=== PATIENT | female | born 1975 | race Caucasian/White ===

== ENCOUNTER → 2017-05-19 | Outpatient (CLI) | payer OTHER ==
[2017-05-22 11:51] LABS: VWF RISTOCETIN CO FACTOR 106 (42-200)
[2017-05-22 15:51] LABS: APTT VON WILL EVAL 27 sec (22-34)
[2017-05-22 17:50] LABS: COAG FACTOR VIII 118 (50-180)
[2017-05-22 19:53] LABS: VWF AG 125 % (50-217)
== END ==
LOC: CLAB 13:49
PROVIDERS: ATTEND Surgery
DX: E21.3 Hyperparathyroidism, unspecified (principal)
CPT/HCPCS: 36415; 85240; 85245; 85246; 85247; 85730

== ENCOUNTER → 2017-06-18 | Day surgery (SDC) | payer OTHER ==
[~2017-06-18] VITALS: Ht 157.5 cm; Wt 80.5 kg
[~2017-06-18] MED LIST: BACITRACIN TOP OINT 15 GM TUBE ONE; BUPIVACAINE/EPINEPHRINE 0.25% 50 ML VIAL ONE; CHLORHEXIDINE GLUCONATE 2 % 1 PACK (2 CLOTHS) TOPICAL PRN; DEXAMETHASONE SOD PHOS 4 MG/ML VIAL IV ONE; DO NOT ADM ANY ANTICOAGULANT DRUGS PRN; ESMOLOL HCL 100 MG/10 ML VIAL IV ONE; GLYCOPYRROLATE 1 MG/5 ML SYRINGE IV PUSH ONE; INSULIN HUMAN REGULAR 1,000 UNITS/10 ML VIAL SQ PRN; LACTATED RINGER'S 1000 ML INJ 1,000 ML IV ONE; LACTATED RINGER'S 1000 ML IV PRN; LEVO50TA4 PO; LEVOTHYROXINE SODIUM 50 MCG TAB PO SCH; LIDOCAINE HCL 1% PF 5 ML SYRINGE OTHER ONE; LIOT5TAB3; LIOTHYRONINE SODIUM 5 MCG TAB PO SCH; METOPROLOL TARTRATE 25 MG TAB PO PRN; MIDAZOLAM HCL 2 MG/2 ML VIAL ONE; NORC5TAB PO; OMEP40CA2; ONDANSETRON HCL 4 MG/2 ML VIAL IV ONE; PANTOPRAZOLE SOD 40 MG DELAYED RELEASE TAB PO SCH; PHENYLEPH/NS 1000 MCG/10 ML SYR IV ONE; POVIDONE IODINE 5% (ANTISEPSIS KIT) 4 APPLICATIONS EACH NARE PRN; PROPOFOL 200 MG/20 ML AMP IV ONE; ROCURONIUM INJ 50 MG/5 ML SYRINGE IV PUSH ONE; SODIUM CHLORID 0.9% 500 ML IV PRN; SUCCINYLCHOLINE CHLORIDE 100 MG/5 ML SYRINGE IV PUSH ONE
[2017-06-18 12:26] LABS: AUTOMATED NEUTROPHIL # 4.2 TH/MM3 (1.8-7.7); BASOPHIL # 0.1 TH/MM3 (0-0.2); BASOPHIL % 0.8 % (0.0-2.0); EOSINOPHIL # 0.1 TH/MM3 (0-0.4); HEMATOCRIT 37.2 % (35.0-46.0); HEMOGLOBIN 12.3 GM/DL (11.6-15.3); LYMPH % 34.2 % (9.0-44.0); LYMPHOCYTE # 2.4 TH/MM3 (1.0-4.8); MEAN CELL VOLUME 87.7 FL (80.0-100.0); MEAN CORPUSCULAR HGB CONC 33.1 % (32.0-36.0); MEAN PLATELET VOLUME 7.8 FL (7.0-11.0); MONO % 5.6 % (0.0-8.0); MONOCYTE # 0.4 TH/MM3 (0-0.9); NEUT % 58.4 % (16.0-70.0); PLATELET COUNT 278 TH/MM3 (150-450); RED BLOOD COUNT 4.24 MIL/MM3 (4.00-5.30); RED CELL DISTRIBUTION WIDTH 13.8 % (11.6-17.2); WHITE BLOOD COUNT 7.1 TH/MM3 (4.0-11.0)
--- NOTE | 2017-06-18 15:39 | HHI.PR ---
cc: José Luis Mitchell MD Immediate Post Op Note Procedure Date: Jun 18, 2017 Pre Op Diagnosis: (1) Hypercalcemia (2) Parathyroid adenoma (3) Primary hyperparathyroidism Post Op Diagnosis: (1) S/P parathyroidectomy (2) Hypercalcemia (3) Primary hyperparathyroidism (4) Parathyroid adenoma Surgeon: José Luis Mitchell Varnish Melter(s): Please see OR records Procedure: Localization of right parathyroid adenoma inferior Parathyroidectomy right inferior gland Complications: None Specimen(s) removed: Right inferior parathyroid gland Anesthesia: General Drains: None IVF Patient to: PACU Patient Condition: Good Implant/Devices: SEE IMPLANT LOG (if applicable) Date/Time of Procedure: SEE SURGICAL CARE RECORD José Luis Mitchell MD Jun 18, 2017 15:39
--- NOTE | 2017-06-18 16:51 | MP ---
cc: José Luis Mitchell MD DATE OF OPERATION: 06/18/2017 PREOPERATIVE DIAGNOSIS: Primary hyperparathyroidism. Primary hyperparathyroidism, right inferior gland. ANESTHESIA: General. SURGEON: José Luis Mitchell MD PROCEDURE: 1. Right inferior parathyroidectomy with localization by navigator probe. 2. Neuromonitoring intraoperatively. INDICATIONS: This pleasant lady who has a primary hyperparathyroidism, hypercalcemia. Plans were made for the above. PROCEDURE: The patient was taken to the operating room and placed in supine position. After endotracheal anesthesia, her right neck is prepped with Betadine. We had localized the area after an injection of the technetium-99. We found a significant hot spot in the right inferior gland. Made a curvilinear incision overlying the most hot spot on the right inferior gland. We dissected down through subcutaneous tissue, identified the platysma muscle, which was incised. We were able to take the strap muscle and retract it medially. Just underneath the strap muscle, a significant-sized parathyroid adenoma was identified. This easily teased away from the surrounding tissue. I did not get deep enough to come close to the recurrent laryngeal nerve. We did identify a structure we thought was the recurrent laryngeal nerve or it had some nerve-like findings but was not anatomically aligned with the recurrent laryngeal nerve. It tested negative on the nerve monitor. It was just pushed out of the way, and the gland, which was a little less than 2 cm, was completely bluntly dissected away from the surrounding tissue, and the 1 vessel was treated with a Harmonic scalpel. This was sent down to pathology where Dr. Dawkins states this looks like hypercellular parathyroid gland measuring just under a gram. We then irrigate the area. The hot count that I was getting in the 300 range is now in the 150 range, similar to the 3 quadrants. No other significant count is noted. The area is then irrigated. Hemostasis assured. We then reapproximate the platysma muscle with a 3-0 Vicryl, and the skin is closed with a 4-0 Monocryl. Steri-Strips applied. Sterile bandage applied. The patient tolerated the procedure well, had no immediate postop complications. In the recovery room, she appeared to have a normal voice. José Luis Mitchell MD JDB/LK , 04:06 PM , 04:51 PM [id number]
[2017-06-18 17:10] VITALS: BP 135/82; PULSE 80; RESP 20; TEMP 97.3; O2SAT 96
== END | disposition home or self-care (01) ==
LOC: HRAD 09:48
PROVIDERS: ATTEND Surgery
DX: D35.1 Benign neoplasm of parathyroid gland (principal); E21.0 Primary hyperparathyroidism; E78.5 Hyperlipidemia, unspecified
CPT/HCPCS: 00320; 60500; 78808; 85025; 88305; 88331; A9500; J0330; J1100; J2250; J2370; J2405; J3010; J7120